=== PATIENT | female | born 1995 | race Caucasian/White ===

== ENCOUNTER 2023-12-09 13:03 | Emergency (ER) | payer MEDICAID, OTHER ==
[~2023-12-09] VITALS: Ht 165.1 cm; Wt 59.0 kg
[2023-12-09 13:06] VITALS: TEMP 98.1; O2SAT 100
[2023-12-09] MEDS: ONDANSETRON HCL 4MG/2ML INJ IV STA (13:37)
[2023-12-09 14:37] LABS: BASOPHILS % 0.2 % (0.0-2.0); HEMATOCRIT. 32.8 % (36.0-48.0); HEMOGLOBIN. 10.7 g/dL (12.0-16.0); LYMPHOCYTES % 9.8 % (20.0-50.0); MEAN CORPUSCULAR HEMOGLOBIN 27.4 pg (28.0-32.0); MEAN CORPUSCULAR HGB CONC 32.6 g/dL (31.0-37.0); MEAN PLATELET VOLUME 7.4 fl (7.4-10.4); MONOCYTES % 5.4 % (2.0-8.0); NEUTROPHILS % 84.6 % (40.0-76.0); PLATELET 365 x1000/uL (130-400); RED CELL DISTRIBUTION WIDTH 13.9 % (11.6-14.6)
[2023-12-09 14:45] LABS: CHLORIDE 106 mEq/L (98-107); POTASSIUM 3.1 mEq/L (3.5-5.1); SODIUM 140 mEq/L (136-145)
[2023-12-09 14:46] LABS: CALCIUM 9.7 mg/dL (8.7-10.4); CARBON DIOXIDE 21 mEq/L (21-32)
[2023-12-09 14:51] LABS: CREATININE 0.8 mg/dL (0.6-1.0); GLUCOSE 136 mg/dL (70-105); UREA NITROGEN BLOOD 18 mg/dL (9-23)
[2023-12-09 14:53] LABS: ALANINE AMINOTRANSFERASE 22 IU/L (10-49); ALBUMIN 4.7 g/dL (3.2-4.8); ASPARTATE AMINOTRANSFERASE 23 IU/L (<34); BILIRUBIN TOTAL 0.5 mg/dL (0.1-1.0); PROTEIN TOTAL 7.5 g/dL (6.0-8.3)
[2023-12-09] MEDS: SODIUM CHLORIDE 0.9% 1,000 ML IV ONE (14:53)
[2023-12-09] MEDS: MORPHINE SULFATE 4 MG/ML INJ (FOR IV/IM USE) IV STA (14:53)
[2023-12-09 15:04] LABS: HCG SCREEN NEGATIVE
[2023-12-09 15:07] LABS: CLARITY URINE CLEAR (CLEAR); COLOR URINE YELLOW (YELLOW); GLUCOSE URINE NEGATIVE (NEGATIVE); KETONES URINE 3+ (NEGATIVE); LEUKOCYTE ESTERASE URINE NEGATIVE (NEGATIVE); NITRITE URINE NEGATIVE (NEGATIVE); OCCULT BLOOD URINE NEGATIVE (NEGATIVE); PROTEIN URINE TRACE (NEGATIVE); SPECIFIC GRAVITY URINE 1.029 (1.005-1.030)
[2023-12-09 15:15] LABS: BACTERIA URINE 1+; RBC URINE 0-2 /hpf (0-2); SQUAMOUS EPITHELIAL CELL URINE 1+ /lpf (RARE/1+); YEAST URINE NONE SEEN
[2023-12-09] MEDS ORDERED: POTASSIUM CHLORIDE 20MEQ TABLET SR PO ONE (15:15)
[2023-12-09] MEDS: POTASSIUM CHLORIDE 20MEQ TABLET SR PO NR (16:12)
[2023-12-09] MEDS ORDERED: FAMO-135 MT (16:27)
[2023-12-09 16:35] VITALS: BP 115/68; PULSE 82; RESP 17; O2SAT 100
[2023-12-10] MEDS ORDERED: IOHEXOL-300 100 ML BOTTLE ONE (00:14)
[2023-12-19] MEDS ORDERED: CIPR-263 MT (16:48)
== END 2023-12-09 17:00 | disposition home or self-care (01) ==
LOC: ER 13:32
DX: R10.84 Generalized abdominal pain (principal); R11.2 Nausea with vomiting, unspecified; Z85.9 Personal history of malignant neoplasm, unspecified; E87.6 Hypokalemia
CPT/HCPCS: 80053; 81003; 81025; 84703; 83690; 85025; 36415; 74177; 96361; 96374; 96375; 99285; Q9967; J2405; J2270; J7030; Z7610

== ENCOUNTER 2024-01-17 14:32 | Emergency (ER) | payer MEDICAID ==
[~2024-01-17] VITALS: Ht 160 cm; Wt 64.0 kg
[~2024-01-17 14:32] MED LIST: CIPR-263 MT; FAMO-135 MT
[2024-01-17 14:35] VITALS: O2SAT 98
[2024-01-17] MEDS ORDERED: ONDANSETRON HCL 4MG/2ML INJ IV STA (15:15)
[2024-01-17] MEDS: SODIUM CHLORIDE 0.9% 1,000 ML IV ONE (15:28)
[2024-01-17 16:06] LABS: BASOPHILS % 0.2 % (0.0-2.0); DIFFERENTIAL COMMENT 0; HEMATOCRIT. 24.7 % (36.0-48.0); HEMOGLOBIN. 8.1 g/dL (12.0-16.0); LYMPHOCYTES % 8.1 % (20.0-50.0); MEAN CORPUSCULAR HEMOGLOBIN 24.9 pg (28.0-32.0); MEAN CORPUSCULAR HGB CONC 32.6 g/dL (31.0-37.0); MEAN CORPUSCULAR VOLUME 76.3 fL (81.0-99.0); MEAN PLATELET VOLUME 7.8 fl (7.4-10.4); MONOCYTES % 5.1 % (2.0-8.0); NEUTROPHILS % 86.6 % (40.0-76.0); PLATELET 298 x1000/uL (130-400); RED BLOOD CELL COUNT 3.24 mill/uL (4.2-5.4); RED CELL DISTRIBUTION WIDTH 16.2 % (11.6-14.6); WHITE BLOOD COUNT 7.8 x1000/uL (4.5-11.0)
[2024-01-17 16:16] LABS: CHLORIDE 109 mEq/L (98-107); POTASSIUM 3.6 mEq/L (3.5-5.1); SODIUM 141 mEq/L (136-145)
[2024-01-17 16:17] LABS: CALCIUM 8.9 mg/dL (8.7-10.4); CARBON DIOXIDE 20 mEq/L (21-32)
[2024-01-17 16:20] LABS: PROTHROMBIN TIME 11.2 sec (9.6-11.0)
[2024-01-17 16:22] LABS: CREATININE 0.7 mg/dL (0.6-1.0); GLUCOSE 145 mg/dL (70-105); UREA NITROGEN BLOOD 18 mg/dL (9-23)
[2024-01-17 16:24] LABS: ALANINE AMINOTRANSFERASE 35 IU/L (10-49); ALBUMIN 4.1 g/dL (3.2-4.8); ASPARTATE AMINOTRANSFERASE 30 IU/L (<34); BILIRUBIN DIRECT 0.1 mg/dL (<=3.0)
[2024-01-17 16:25] LABS: BILIRUBIN TOTAL 0.4 mg/dL (0.1-1.0); PROTEIN TOTAL 6.9 g/dL (6.0-8.3)
[2024-01-17 16:33] LABS: HCG SCREEN NEGATIVE
[2024-01-17 21:01] VITALS: BP 99/65; PULSE 79; RESP 18; TEMP 36.72516; O2SAT 98
[2024-01-17] MEDS ORDERED: IOHEXOL-300 100 ML BOTTLE ONE (22:05)
== END 2024-01-17 21:07 | disposition left against medical advice (07) ==
LOC: ER 14:42
DX: R10.32 Left lower quadrant pain (principal); R11.2 Nausea with vomiting, unspecified; K59.00 Constipation, unspecified; Z85.9 Personal history of malignant neoplasm, unspecified; Z90.710 Acquired absence of both cervix and uterus
CPT/HCPCS: 99285; 74177; 96360; 80076; 80048; 84703; 83690; 85025; 85610; 36415; Q9967; J2405; J7030